=== PATIENT | male | born 1960 | race Caucasian/White ===

== ENCOUNTER → 2018-10-30 | Outpatient (CLI) | payer MEDICAID ==
[2018-10-30 08:13] LABS: HCT 43.4 % (39.0-53.0); MCH 32.1 pg (25.0-35.0); MCHC 34.6 g/dL (31.0-37.0); MCV 92.6 fL (80.0-100.0); Mean Platelet Volume 6.2; Platelet Count 110 k/uL (150-450); RBC 4.68 m/uL (4.30-5.90); RDW 13.4 % (11.5-15.5); WBC 4.6 k/uL (3.8-10.6)
[2018-10-30 08:18] LABS: ALT 63 U/L (21-72); AST 41 U/L (17-59); Alkaline Phosphatase 36 U/L (38-126); Anion Gap 8 mmol/L; Bilirubin, Delta 0.3 mg/dL (0.0-0.2); Bilirubin,Unconjugated 0.3 mg/dL (0.0-1.1); Blood Urea Nitrogen 18 mg/dL (9-20); Calcium 9.4 mg/dL (8.4-10.2); Carbon Dioxide 30 mmol/L (22-30); Chloride 104 mmol/L (98-107); Glucose 89 mg/dL (74-99); Sodium 142 mmol/L (137-145); Total Bilirubin 0.6 mg/dL (0.2-1.3); Total Protein 6.2 g/dL (6.3-8.2)
--- NOTE | 2018-10-30 08:35 | US ---
EXAMINATION TYPE: US liver DATE OF EXAM: 10/30/2018 COMPARISON: NONE CLINICAL HISTORY: R74.8 abnormal liver studies. abn labs, npo, no previous surgeries EXAM MEASUREMENTS: Liver Length: 19.7 cm Gallbladder Wall: 0.2 cm CBD: 0.5 cm Right Kidney: 11.6 x 5.2 x 5.8 cm Pancreas: Some shadowing partially obscuring the pancreas due to overlying bowel gas. No discrete du ctal dilatation is seen. Tail obscured by overlying bowel gas Liver: There is increased echogenicity of the hepatic parenchyma with diminished visualization of th e portal triads most commonly relating to hepatic steatosis and limiting evaluation for underlying he patic masses. Gallbladder: wnl Evidence for sonographic Gipson's sign: neg CBD: Limited visualization due to overlying bowel gas Right Kidney: wnl IMPRESSION: Sonographic findings most, minimally related to hepatic steatosis overall appearing mild in degree. Correlate with liver function test results.
[2018-10-30 12:11] LABS: Protein, Total 5.8 g/dL (6.2-8.2)
[2018-10-30 13:39] LABS: Hepatitis B Core IgM Non-Reactive (Non-Reactive)
[2018-10-30 13:40] LABS: Hepatitis A Antibody IgM Non-Reactive (Non-Reactive)
[2018-10-30 14:44] LABS: Ceruloplasmin 16.6 mg/dL (20.0-60.0)
[2018-10-31 10:22] LABS: Albumin 3.87 g/dL (3.80-4.90); Gamma Globulin 0.54 g/dL (0.70-1.50)
[2018-10-31 11:40] LABS: Liver/Kidney Microsome Antibod 1.7 UNITS (<=20)
== END | disposition home or self-care (01) ==
LOC: RADUSWWP 06:51
PROVIDERS: ATTEND Internal Medicine
DX: R74.8 Abnormal levels of other serum enzymes (principal)
CPT/HCPCS: 76705; 80048; 80074; 80076; 82103; 82390; 82728; 83516; 83540; 83550; 84165; 85027; 86376

== ENCOUNTER 2018-11-21 10:39 | Day surgery (SDC) | payer MEDICAID ==
[2018-11-20 08:52] VITALS: BMI 38.0
[2018-11-21] MEDS ORDERED: LACTATED RINGERS 1,000 ML IV SCH (10:45)
[2018-11-21] MEDS ORDERED: LIDOCAINE 1% 20 ML VIAL (10MG/ML) FOR IV START INTRADERMA ONE (10:47)
[2018-11-21 10:56] VITALS: TEMP 97.8
[2018-11-21 11:21] LABS: Glucose,Whole Blood 126 mg/dL (75-99)
[2018-11-21] MEDS ORDERED: LIDOCAINE 1% INJ 10MG/ML (20 ML MDV) ONE (11:38)
[2018-11-21] MEDS ORDERED: PROPOFOL 10 MG/ML 20 ML VIAL IV ONE (11:38)
[2018-11-21] MEDS ORDERED: MIDAZOLAM 2 MG/2 ML VIAL ONE (11:38)
[2018-11-21] MEDS ORDERED: fentaNYL (PF) 50 MCG/ML 2 ML AMP ONE (11:38)
[2018-11-21] MEDS ORDERED: GLYCOPYRROLATE 0.2 MG/ML 2 ML VIAL ONE (11:38)
[2018-11-21 12:30] VITALS: RESP 16
--- NOTE | 2018-11-21 12:30 | P.PCN ---
Date of Procedure: 11/21/18 Description of Procedure: Brief history: 58-year-old male with a medical history significant for hypertension, dyslipidemia, diabetes mellitus type 2 and obesity who was initially evaluated in the office for elevation of liver enzymes. The patient had isolated elevation of AST and ALT on his last 2 blood draws. In addition the patient reported a long-standing history of gastroesophageal reflux disease progressing over 10 years which she reports was controlled with twice daily PPI therapy. He denied any dysphagia or odynophagia. He did report prior colonoscopy 5 years ago which was significant for polyp resection. Procedure performed: Esophagogastroduodenoscopy with biopsy Colonoscopy with polypectomy Estimated blood loss: Minimal. Preoperative diagnosis: GERD, personal history of colon polyps, last colonoscopy 5 years ago [place] [facility] [place]: After informed consent was obtained from the patient was brought into the endoscopy unit and IV sedation was administered by anesthesia under continuous monitoring. Initially upper endoscopy was done. The Olympus GF 190 video endoscope was inserted inserted into the mouth and esophagus intubated without any difficulty and was gradually advanced into the stomach and duodenum and carefully examined. The bulb and second part of the duodenum appeared normal, with biopsies taken. The scope was then withdrawn into the stomach adequately insufflated with air and upon careful examination the antrum and body, cardia and fundus appeared grossly normal, with linear erythema extending into the antrum and body suggestive of mild gastritis with biopsies of the antrum and body taken. The scope was then withdrawn into the esophagus. The GE junction was located at 42 cm to the incisors, and appeared somewhat irregular consistent with short segment Schrader's with biopsies taken. It appeared regular with no erythema erosions or ulcerations. Rest of the esophagus appeared normal. Patient tolerated the procedure well. At this time the patient continued to remain sedation. Initial digital rectal examination was normal. Olympus CF 190 video colonoscope was then inserted into the rectum and gradually advanced to the cecum without any difficulty. Terminal ileum was intubated and appeared normal. Careful examination was performed as the scope was gradually being withdrawn. The prep was excellent. The cecum, ascending colon, transverse colon, descending colon, sigmoid colon and rectum appeared normal. 3 diminutive polyps measuring 2-3 mm in size were removed with cold forcep polypectomy from the cecum. One sessile 7 mm polyp in the ascending colon was removed with cold snare polypectomy. 2 sessile descending colon polyps were seen one measuring 3 mm removed by cold forcep polypectomy and one measuring 6 mm removed with cold snare polypectomy. Mild colonic diverticulosis predominantly in the left colon. Retroflexion was performed in the rectum and no lesions were noted, with mild internal hemorrhoids seen. Patient tolerated the procedure well. Impression: 1. Mild gastritis, biopsied. Duodenum, biopsied. Irregular GE junction, biopsied to rule out Schrader's esophagus. 2. 3 diminutive cecal polyps removed with cold forcep polypectomy. One ascending colonic polyp removed with cold snare polypectomy. 2 descending colon polyps 1 removed with cold forceps polypectomy and 1 removed with cold snare polypectomy. 3. Mild left-sided diverticulosis. Mild internal hemorrhoids. Recommendations: Findings of this examination were discussed with the patient as well as his . Okay for diet, recommend high-fiber. Await pathology from biopsies. Continue twice daily PPI therapy. Recommend repeat colonoscopy in 3 years pending findings of pathology. Patient may require repeat EGD in 1 year if esophageal biopsies are consistent with Schrader's esophagus.
[2018-11-21 12:58] VITALS: BP 125/83; PULSE 87
== END 2018-11-21 13:06 | disposition home or self-care (01) ==
LOC: ORWHC2ENDO 10:39
PROVIDERS: ATTEND Internal Medicine
DX: Z12.11 Encounter for screening for malignant neoplasm of colon (principal); D12.2 Benign neoplasm of ascending colon; D12.0 Benign neoplasm of cecum; D12.4 Benign neoplasm of descending colon; K29.50 Unspecified chronic gastritis without bleeding; K57.30 Diverticulosis of large intestine without perforation or abscess without bleeding; K64.8 Other hemorrhoids; K21.9 Gastro-esophageal reflux disease without esophagitis; Z86.010 Personal history of colon polyps; E11.9 Type 2 diabetes mellitus without complications; Z79.84 Long term (current) use of oral hypoglycemic drugs; E78.5 Hyperlipidemia, unspecified; I10 Essential (primary) hypertension; Z86.73 Personal history of transient ischemic attack (TIA), and cerebral infarction without residual deficits; E66.9 Obesity, unspecified; Z68.38 Body mass index [BMI] 38.0-38.9, adult; Z79.1 Long term (current) use of non-steroidal anti-inflammatories (NSAID); Z79.899 Other long term (current) drug therapy
CPT/HCPCS: 88305; 45380; 45385; 43239; J2250; J2001; J3010; J2704

== ENCOUNTER 2020-11-13 15:33 | Emergency (ER) | payer MEDICAID ==
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
== END 2020-11-13 19:24 | disposition expired ==
LOC: EC 15:33
DX: I46.9 Cardiac arrest, cause unspecified (principal); S00.81XA Abrasion of other part of head, initial encounter; S40.811A Abrasion of right upper arm, initial encounter; S80.212A Abrasion, left knee, initial encounter; S80.211A Abrasion, right knee, initial encounter; I10 Essential (primary) hypertension; K21.9 Gastro-esophageal reflux disease without esophagitis; E78.5 Hyperlipidemia, unspecified; E11.9 Type 2 diabetes mellitus without complications; E66.9 Obesity, unspecified; Z68.38 Body mass index [BMI] 38.0-38.9, adult; Z79.899 Other long term (current) drug therapy; Z79.84 Long term (current) use of oral hypoglycemic drugs; Z86.73 Personal history of transient ischemic attack (TIA), and cerebral infarction without residual deficits; V86.05XA Driver of 3- or 4- wheeled all-terrain vehicle (ATV) injured in traffic accident, initial encounter
CPT/HCPCS: 99291